=== PATIENT | female | born 1950 | race Hispanic/Latino ===

== ENCOUNTER 2023-05-30 15:47 | Emergency (ER) | payer MEDICARE, OTHER | END 2023-05-30 17:31 | disposition left against medical advice (07) | LOC: EDH 15:47 | DX: M25.511 Pain in right shoulder (principal); Z53.21 Procedure and treatment not carried out due to patient leaving prior to being seen by health care provider ==

== ENCOUNTER 2024-04-09 15:26 | Emergency (ER) | payer OTHER ==
[~2024-04-09] VITALS: Ht 149.9 cm; Wt 85.3 kg
[2024-04-09 16:06] LABS: BASOPHILS # (AUTO) 0.04 K/uL (0.00-0.20); BASOPHILS % (AUTO) 0.5 % (0.0-5.0); EOSINOPHILS # (AUTO) 0.23 K/uL (0.00-0.70); EOSINOPHILS % (AUTO) 3.1 % (0.0-8.0); HEMATOCRIT 29.1 % (36-48); IMMATURE GRANULOCYTE ABSOLUTE 0.03 K/uL (0-1); LYMPHOCYTES # (AUTO) 1.5 K/uL (1.0-4.8); LYMPHOCYTES % (AUTO) 20.2 % (21.0-51.0); MEAN CORPUSCULAR HEMOGLOBIN 30.7 pg (27.0-33.0); MONOCYTES # (AUTO) 0.5 K/uL (0.1-1.0); MONOCYTES % (AUTO) 6.4 % (3.0-13.0); NEUTROPHILS # (AUTO) 5.2 K/uL (1.8-7.7); NEUTROPHILS % (AUTO) 69.4 % (40.0-77.0); PLATELET COUNT (AUTO) 270 K/uL (130-400); RED BLOOD CELL COUNT(AUTO) 3.03 MIL/uL (4.00-5.50); RED CELL DISTRIBUTION WIDTH 14.1 % (11.0-15.5); WHITE BLOOD COUNT (AUTO) 7.5 K/uL (4.8-10.8)
--- NOTE | 2024-04-09 16:08 | ERN ---
ED Note History of Present Illness Stated Complaint: ABNORMAL LABS, POTASSIUM Chief Complaint: Abnormal Labs Time Seen by MD: 15:51 Dictation: PATIENT IS A 74-year-old female with past medical history of CHF, diabetes, hypothyroid, hypertension, anxiety came to the ED with chief complaint of high potassium on labs taken recently. Patient currently does not have a PCP but sees her venipuncturist Dr. Manning, on recent labs her potassium is mildly elevated possibly due to her blood pressure medication lisinopril and spironolactone. Her doctor advised to go to ED and get a EKG done and get the labs done. Home Meds Active Scripts Sodium Zirconium Cyclosilicate (Lokelma) 10 Gram Powd.pack, 10 GM PO BID for 6 Days, #8 Take 10 g twice daily for 2 days Take 10 g once daily for next 4 days Prov:MAUREEN BRAY MD 04/09/24 Past Medical History Past Medical History: Anxiety, CHF, Diabetes-Type II, Hypertension, Hypothyroid Surgical History: Review of System Dictation Constitutional-no chills, weight loss/gain, fever Eyes-no injury, pain, redness and discharge ENT-no injury, pain, swelling Cardiovascular no chest pain, palpitations, edema Respiratory no shortness of breath, cough, wheezing Abdomen/GI-no abdominal pain, diarrhea, constipation, vomiting, nausea Back no injury and pain Genitourinary no injury, bleeding and discharge Musculoskeletal/extremities no injury, deformity Skin no rash, discoloration Neuro-no headache, weakness, numbness, tingling, seizures, tremors Psych-no suicidal ideation, homicidal ideation, hallucinations, depression, anxiety, memory loss Initial Vital Sign VS Vital Signs Date Time Temp Pulse Resp B/P (MAP) Pulse Ox O2 Delivery O2 Flow Rate FiO2 04/09/24 15:27 98.4 91 20 127/62 96 Room Air 0 04/09/24 17:31 21 Physical Exam Dictation General-patient is awake alert and oriented Head/neck-normocephalic, atraumatic Eyes-PERRL, EOMI, vision at baseline Neck-trachea midline, supple, no nuchal rigidity Cardiovascular-RRR, normal S1/S2, no MRG is, no JVD Respiratory-no distress, wheezing, rales, rhonchi Abdomen-no tenderness, guarding, soft, nondistended Skin warm, dry, normal turgor, no rash Musculoskeletal/extremities pulses equal, no cyanosis Neuro-COA X 4, GCS 15, strength 5/5, CN 2-12 intact Psych-normal behavior, mood and affect normal Results (Laboratory/Radiology) Laboratory/Radiology Laboratory Tests Test 04/09/24 16:00 White Blood Count 7.5 K/uL (4.8-10.8) Red Blood Count 3.03 MIL/uL (4.00-5.50) L Hemoglobin 9.3 g/dL (12.0-16.0) L Hematocrit 29.1 % (36-48) L Mean Corpuscular Volume 96.0 fL (79-99) Mean Corpuscular Hemoglobin 30.7 pg (27.0-33.0) Mean Corpuscular Hemoglobin Concent 32.0 g/dL (32.0-36.0) Red Cell Distribution Width 14.1 % (11.0-15.5) Platelet Count 270 K/uL (130-400) Mean Platelet Volume 10.7 fL (7.5-10.5) H Immature Granulocyte % (Auto) 0.4 % (0-1) Neutrophils (%) (Auto) 69.4 % (40.0-77.0) Lymphocytes (%) (Auto) 20.2 % (21.0-51.0) L Monocytes (%) (Auto) 6.4 % (3.0-13.0) Eosinophils (%) (Auto) 3.1 % (0.0-8.0) Basophils (%) (Auto) 0.5 % (0.0-5.0) Neutrophils # (Auto) 5.2 K/uL (1.8-7.7) Lymphocytes # (Auto) 1.5 K/uL (1.0-4.8) Monocytes # (Auto) 0.5 K/uL (0.1-1.0) Eosinophils # (Auto) 0.23 K/uL (0.00-0.70) Basophils # (Auto) 0.04 K/uL (0.00-0.20) Absolute Immature Granulocyte (auto 0.03 K/uL (0-1) Nucleated Red Blood Cells 0.0 % (0.0-0.19) Sodium Level 141 mmol/L (136-145) Potassium Level 5.7 mmol/L (3.5-5.1) H Chloride Level 106 mmol/L (101-111) Carbon Dioxide Level 30 mmol/L (21-32) Blood Urea Nitrogen 34 mg/dL (7-18) H Creatinine 1.9 mg/dL (0.5-1.0) H Glomerular Filtration Rate Calc 28 mL/min (>90) Random Glucose 93 mg/dL (70-105) Total Calcium 8.8 mg/dL (8.5-10.1) Magnesium Level 2.20 mg/dL (1.80-2.40) EKG Comment: EKG taken on 04/09/2024 at 3:33 p.m. Patient is in sinus rhythm with heart rate of 84 MO [address] elevations or depressions seen on the EKG ED Course ED Course Orders Procedure Category Date Status Time Cbc With Differential LAB 04/09/24 Complete 15:30 Basic Metabolic Panel LAB 04/09/24 Complete 15:30 Magnesium LAB 04/09/24 Complete 15:30 12 Lead Ekg Tracing- EKG 04/09/24 Logged Technical 15:57 Vital Signs Date Time Temp Pulse Resp B/P (MAP) Pulse Ox O2 Delivery O2 Flow Rate FiO2 04/09/24 17:31 99.0 78 14 123/53 98 Room Air* 0 21 04/09/24 15:27 98.4 91 20 127/62 96 Room Air 0 Medical Decision Making MDM INITIAL IMPRESSION Initial history and physical concerning for hyperkalemia Contributing medical problems: Lisinopril, spironolactone usage I have reviewed the triage nursing notes and vital signs. Initial plan: Laboratory evaluation and EKG DATA REVIEW I have reviewed additional NN, repeat VS, and monitoring where indicated. Heart rate, blood pressure, and O2 saturation are acceptable. ED COURSE Interventions: None Reassessment: Not indicated DISPOSITION Final diagnostic impression: Hyperkalemia with potassium of 5.7 I discussed my findings, clinical impression and treatment recommendations with the patient. My final plan for disposition was made based upon -mild risk of complications and potential morbidity of the patient's condition. -Discussion with the patient regarding management options. Patient will be discharged with medication DX & DISP Disposition: Discharge Departure Impression: Primary Impression: Drug-induced hyperkalemia Additional Impression: Hyperkalemia Condition: Stable Scripts Sodium Zirconium Cyclosilicate (Lokelma) 10 Gram Powd.pack 10 GM PO BID for 6 Days, #8 Take 10 g twice daily for 2 days Take 10 g once daily for next 4 days Prov: MAUREEN BRAY MD 04/09/24 Additional Instructions: come Back to ED if you have any acute or emergency symptoms Take your medicines exactly as prescribed. Call your doctor or nurse advice line if you think you are having a problem with your medicine. Stop taking certain medicines if your doctor asks you to. They may be causing yo ur high potassium levels. If you have concerns about stopping medicine, talk with your doctor. If you have kidney, heart, or liver disease and have to limit fluids, talk with your doctor before you increase the amount of fluids you drink. If the doctor says it's okay, drink plenty of fluids. Avoid strenuous exercise until your doctor tells you it is okay. Be aware of potassium in your diet. Potassium is in many foods, including vegetables, fruits, and milk products. Foods high in potassium include bananas, cantaloupe, broccoli, milk, potatoes, and tomatoes. Low-potassium foods include blueberries, raspberries, cucumber, white or brown rice, pasta, and noodles. Do not use a salt substitute without talking to your doctor first. Most of these are very high in potassium. Be sure to tell your doctor about any prescription, [id number], or natural health products you take. Some of these can raise potassium. After completing the Lokelma as prescribed follow up with the Nephrology Check back with the labs in 1 week and check the potassium. Referrals: MARY RAJPUT (PCP) Time of Disposition: 16:38 I have reviewed I have reviewed the case I have examined patient I performed a substantive portion of the visit. I have reviewed and personally made and approve the management plan that is documented in the notes by myself with ROHIT/resident. I acknowledged full responsibility for the patient's management plan. 74-year-old female comes in with hyperkalemia potassium 5.7. Likely due to CKD or drug-induced. Treated here in the ER. Patient was offered admission multiple times, we told her of the risks of having elevated potassium, but she reports that she does not want to stay in hospital and she feels fine. She appears to understand the risks and benefits of leaving, including a cardiac dysrhythmia that is not monitored. I offered her the benefits of admission including Nephrology consultation and telemetry monitoring. Came up with a plan to give her Lokelma for the next few days and she will follow up with the primary doctor on Friday in 48 hours. MAUREEN BRAY MD Apr 09, 2024 16:08 NEHEMIAS AGUILAR DO Apr 10, 2024 08:04
[2024-04-09 16:25] LABS: CREATININE 1.9 mg/dL (0.5-1.0); POTASSIUM 5.7 mmol/L (3.5-5.1)
[2024-04-09 16:26] LABS: MAGNESIUM 2.2 mg/dL (1.80-2.40)
[2024-04-09] MEDS ORDERED: SODI10PO2 PO (16:38)
[2024-04-09 17:31] VITALS: BP 123/53; PULSE 78; RESP 14; TEMP 98.9; O2SAT 98
--- NOTE | 2024-04-12 11:08 | EKG ---
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
== END 2024-04-09 17:34 | disposition home or self-care (01) ==
LOC: EDH 15:26
DX: E87.5 Hyperkalemia (principal); I11.0 Hypertensive heart disease with heart failure; I50.9 Heart failure, unspecified; E03.9 Hypothyroidism, unspecified; E11.9 Type 2 diabetes mellitus without complications; F41.9 Anxiety disorder, unspecified; Z79.899 Other long term (current) drug therapy; Z98.890 Other specified postprocedural states
CPT/HCPCS: 36415; 80048; 83735; 85025; 93005; 99283